=== PATIENT | male | born 1945 | race Caucasian/White ===

== ENCOUNTER 2022-05-06 19:52 | Inpatient (IN) | payer MEDICARE ==
[2022-05-06 21:15] LABS: #Lymphocytes 0.2 thou/uL (1.20-3.40); #Monocytes 0.4 thou/uL (0.11-0.59); %Basophils 0.2 % (0.0-1.0); %Eosinophils 0.1 % (0.0-10.0); %Lymphocytes 2.6 % (21.0-51.0); %Monocytes 6.3 % (0.0-10.0); %Neutrophils 90.8 % (42.0-75.0); Hemoglobin 12.3 g/dL (14.0-18.0); Mean Corpuscular HGB CONC 32.9 g/dL (32.0-36.0); Mean Corpuscular Hemoglobin 31.5 pg (27.0-31.0); Mean Corpuscular Volume 95.6 fl (78.0-98.0); Mean Platelet Volume 10.5 fL (7.4-10.4); RBC Distribution Width 12.8 % (11.5-14.5); White Blood Cell (WBC) Count 5.6 10x3/uL (4.8-10.8)
[2022-05-06 21:16] LABS: Platelet Morphology Comment PLT clumps seen-ADEQ
[2022-05-06 21:29] LABS: ALT (SGPT) 38 U/L (8-55); AST (SGOT) 158 U/L (5-34); Albumin 3.7 g/dL (3.4-4.8); Alkaline Phosphatase 48 U/L (40-110); Anion Gap 12 mmol/L (10-20); BUN (Urea Nitrogen) 15 mg/dL (8.4-25.7); Bilirubin, Total 0.4 mg/dL (0.2-1.2); CK (CPK) 2360 U/L (30-200); Calc. Creatinine Clearance 0 mL/min (70-130); Calcium 8.5 mg/dL (7.8-10.44); Carbon Dioxide 25 mmol/L (23-31); Chloride 101 mmol/L (98-107); Estimated GFR 90; Globulin 2.4 g/dL (2.4-3.5); Glucose 114 mg/dL (83-110); Lipase 34 U/L (8-78); Potassium 4.7 mmol/L (3.5-5.1); Protein, Total 6.1 g/dL (5.8-8.1); Sodium 133 mmol/L (136-145)
[2022-05-06 21:59] LABS: CKMB 120.2 ng/mL (0-6.6)
[2022-05-06] MEDS ORDERED: Enoxaparin Sodium 60 MG/0.6 ML SYRINGE ONE (22:06)
[2022-05-06] MEDS ORDERED: Aspirin Chewable 81 MG TAB ONE (22:06)
[2022-05-07] MEDS ORDERED: Nitroglycerin 0.4 MG TAB (25 Tab Bottle) SL PRN (00:19)
[2022-05-07] MEDS ORDERED: HYDROcodone/Acetaminophen 5/325 mg Tablet PO PRN (00:19)
[2022-05-07] MEDS ORDERED: Ondansetron ODT 4 MG TAB PO PRN (00:19)
[2022-05-07] MEDS ORDERED: Acetaminophen 325 MG TAB PO PRN (00:19)
[2022-05-07] MEDS ORDERED: Ondansetron PF 4 MG/2 ML Vial IVP PRN (00:19)
[2022-05-07] MEDS ORDERED: Cepastat Lozenges 1 LOZ PO PRN (00:29)
[2022-05-07] MEDS ORDERED: Benzonatate 100 MG CAP PO PRN (00:29)
[2022-05-07 01:02] LABS: Troponin I 30.277 ng/mL (< 0.028)
[2022-05-07 01:15] LABS: Hemoglobin A1c 5.1 % (4.0-6.0)
[2022-05-07] MEDS: Sodium Chloride 0.9% 1,000 ML IV SCH ×3 (01:47→22:39)
[2022-05-07 02:02] LABS: SARS-CoV-2 NAA Rapid Test Not Detected (NotDetected)
[2022-05-07 02:19] LABS: Magnesium 1.9 mg/dL (1.6-2.6)
[2022-05-07 04:18] LABS: ALT (SGPT) 78 U/L (8-55); AST (SGOT) 209 U/L (5-34); Albumin 3.2 g/dL (3.4-4.8); Alkaline Phosphatase 46 U/L (40-110); Anion Gap 10 mmol/L (10-20); BUN (Urea Nitrogen) 14 mg/dL (8.4-25.7); Bilirubin, Total 0.3 mg/dL (0.2-1.2); Calc. Creatinine Clearance 0 mL/min (70-130); Calcium 7.8 mg/dL (7.8-10.44); Carbon Dioxide 21 mmol/L (23-31); Chloride 106 mmol/L (98-107); Estimated GFR 94; Globulin 2.3 g/dL (2.4-3.5); Glucose 94 mg/dL (83-110); Potassium 4.3 mmol/L (3.5-5.1); Protein, Total 5.5 g/dL (5.8-8.1); Sodium 133 mmol/L (136-145)
[2022-05-07 04:25] LABS: Critical Call Chem Troponin I RESULT DECREASING; Troponin I 22.214 ng/mL (< 0.028)
[2022-05-07 06:05] LABS: #Lymphocytes 0.4 thou/uL (1.20-3.40); #Monocytes 0.5 thou/uL (0.11-0.59); #Neutrophils 3.4 thou/uL (1.40-6.50); %Basophils 0.4 % (0.0-1.0); %Eosinophils 0.3 % (0.0-10.0); %Lymphocytes 8.5 % (21.0-51.0); %Monocytes 10.9 % (0.0-10.0); %Neutrophils 79.9 % (42.0-75.0); Hemoglobin 11.4 g/dL (14.0-18.0); Mean Corpuscular HGB CONC 32.8 g/dL (32.0-36.0); Mean Corpuscular Hemoglobin 31.7 pg (27.0-31.0); Mean Corpuscular Volume 96.4 fl (78.0-98.0); Mean Platelet Volume 8.2 fL (7.4-10.4); Platelet Count 83 10x3/uL (130-400); RBC Distribution Width 12.9 % (11.5-14.5); Red Blood Cell (RBC) Count 3.61 mill/uL (4.70-6.10); White Blood Cell (WBC) Count 4.3 10x3/uL (4.8-10.8)
[2022-05-07] MEDS: Aspirin 81 mg Enteric Coated Tablet PO SCH (07:15)
[2022-05-07] MEDS: Enoxaparin Sodium 60 MG/0.6 ML SYRINGE SC SCH ×2 (08:53→22:39)
[2022-05-07] MEDS: Oseltamivir 75 MG CAP PO SCH ×2 (09:51→22:38)
[2022-05-07 11:24] LABS: Critical Call Chem Troponin I RESULT DECREASING; Troponin I 12.696 ng/mL (< 0.028)
[2022-05-07] MEDS ORDERED: Albuterol Sulfate 2.5 mg/3 ml Neb NEB SCH (13:00)
[2022-05-07] MEDS ORDERED: Albuterol Sulfate 2.5 mg/3 ml Neb ONE (14:35)
[2022-05-07] MEDS: Albuterol Sulfate 2.5 mg/3 ml Neb NEB SCH ×2 (14:44→19:17)
[2022-05-07] MEDS: Mometasone 200 MCG/Formoterol 5 MCG 120 PUFF INHALER INH SCH (19:17)
[2022-05-07] MEDS: Atorvastatin Calcium 40 MG TAB PO SCH (22:38)
[2022-05-08 05:33] LABS: Anion Gap 9 mmol/L (10-20); BUN (Urea Nitrogen) 12 mg/dL (8.4-25.7); Calc. Creatinine Clearance 74 mL/min (70-130); Calcium 7.7 mg/dL (7.8-10.44); Carbon Dioxide 23 mmol/L (23-31); Cardiac Risk 3.1 (Less than 4.5); Chloride 104 mmol/L (98-107); Cholesterol 114 mg/dl (< 200 Desired); Estimated GFR 96; Glucose 97 mg/dL (83-110); HDL Cholesterol 37 mg/dL (>60 Neg Risk); LDL Cholesterol, Calculated 62 mg/dL; Sodium 132 mmol/L (136-145); Triglycerides 75 mg/dL (Less than 150)
[2022-05-08 05:39] LABS: CKMB 32.2 ng/mL (0-6.6)
[2022-05-08] MEDS: Sodium Chloride 0.9% 1,000 ML IV SCH ×2 (06:16→17:51)
[2022-05-08] MEDS: Albuterol Sulfate 2.5 mg/3 ml Neb NEB SCH ×4 (07:43→18:33)
[2022-05-08] MEDS: Mometasone 200 MCG/Formoterol 5 MCG 120 PUFF INHALER INH SCH ×2 (07:43→18:32)
[2022-05-08 08:03] LABS: #Lymphocytes 0.7 thou/uL (1.20-3.40); #Monocytes 0.5 thou/uL (0.11-0.59); #Neutrophils 5.3 thou/uL (1.40-6.50); %Basophils 0.2 % (0.0-1.0); %Eosinophils 0.1 % (0.0-10.0); %Lymphocytes 10.5 % (21.0-51.0); %Monocytes 8.3 % (0.0-10.0); Hemoglobin 11.9 g/dL (14.0-18.0); Mean Corpuscular HGB CONC 33.8 g/dL (32.0-36.0); Mean Corpuscular Hemoglobin 32.6 pg (27.0-31.0); Mean Corpuscular Volume 96.3 fl (78.0-98.0); Mean Platelet Volume 9.7 fL (7.4-10.4); Platelet Count 99 10x3/uL (130-400); RBC Distribution Width 12.8 % (11.5-14.5); Red Blood Cell (RBC) Count 3.66 mill/uL (4.70-6.10); White Blood Cell (WBC) Count 6.5 10x3/uL (4.8-10.8)
[2022-05-08 08:04] LABS: Platelet Clumps SLIGHT
[2022-05-08] MEDS: Aspirin 81 mg Enteric Coated Tablet PO SCH (09:04)
[2022-05-08] MEDS: Enoxaparin Sodium 60 MG/0.6 ML SYRINGE SC SCH ×2 (09:04→21:52)
[2022-05-08] MEDS: Oseltamivir 75 MG CAP PO SCH ×2 (09:04→21:52)
[2022-05-08] MEDS: THIORIDAZINE 50 MG PO SCH (21:00)
[2022-05-08] MEDS: Atenolol 25 MG TAB PO SCH (21:52)
[2022-05-09] MEDS: Sodium Chloride 0.9% 1,000 ML IV SCH (05:08)
[2022-05-09 05:09] LABS: Anion Gap 14 mmol/L (10-20); BUN (Urea Nitrogen) 12 mg/dL (8.4-25.7); CK (CPK) 2237 U/L (30-200); Calc. Creatinine Clearance 69 mL/min (70-130); Calcium 7.9 mg/dL (7.8-10.44); Carbon Dioxide 20 mmol/L (23-31); Chloride 99 mmol/L (98-107); Estimated GFR 94; Glucose 143 mg/dL (83-110); Potassium 4.5 mmol/L (3.5-5.1); Sodium 128 mmol/L (136-145)
[2022-05-09 05:19] LABS: Troponin I 10.814 ng/mL (< 0.028)
[2022-05-09] MEDS: Albuterol Sulfate 2.5 mg/3 ml Neb NEB SCH ×4 (07:53→20:13)
[2022-05-09] MEDS: Mometasone 200 MCG/Formoterol 5 MCG 120 PUFF INHALER INH SCH ×2 (07:53→20:13)
[2022-05-09] MEDS ORDERED: Atenolol 50 MG TAB PO SCH (09:00)
[2022-05-09] MEDS: Oseltamivir 75 MG CAP PO SCH ×2 (09:50→21:49)
[2022-05-09] MEDS: Aspirin 81 mg Enteric Coated Tablet PO SCH (09:50)
[2022-05-09] MEDS: Enoxaparin Sodium 60 MG/0.6 ML SYRINGE SC SCH ×2 (09:50→21:49)
[2022-05-09] MEDS: Atenolol 25 MG TAB PO SCH ×2 (09:50→21:48)
[2022-05-09] MEDS ORDERED: Furosemide 20 MG/2 ML VIAL SLOW IVP SCH (17:00)
[2022-05-09] MEDS: THIORIDAZINE 50 MG PO SCH (21:00)
[2022-05-10 04:38] LABS: Anion Gap 15 mmol/L (10-20); BUN (Urea Nitrogen) 20 mg/dL (8.4-25.7); CK (CPK) 790 U/L (30-200); Calc. Creatinine Clearance 68 mL/min (70-130); Calcium 8.1 mg/dL (7.8-10.44); Carbon Dioxide 21 mmol/L (23-31); Chloride 97 mmol/L (98-107); Estimated GFR 92; Glucose 128 mg/dL (83-110); Potassium 4.4 mmol/L (3.5-5.1); Sodium 129 mmol/L (136-145)
[2022-05-10] MEDS: Albuterol Sulfate 2.5 mg/3 ml Neb NEB SCH ×3 (06:46→19:29)
[2022-05-10] MEDS: Mometasone 200 MCG/Formoterol 5 MCG 120 PUFF INHALER INH SCH ×2 (06:48→19:31)
[2022-05-10] MEDS: Atenolol 25 MG TAB PO SCH ×2 (10:11→20:35)
[2022-05-10] MEDS: Aspirin 81 mg Enteric Coated Tablet PO SCH (10:11)
[2022-05-10] MEDS: Oseltamivir 75 MG CAP PO SCH ×2 (10:11→20:35)
[2022-05-10] MEDS: Enoxaparin Sodium 60 MG/0.6 ML SYRINGE SC SCH ×2 (10:13→20:37)
[2022-05-10] MEDS: Atorvastatin Calcium 40 MG TAB PO SCH (20:35)
[2022-05-10] MEDS: THIORIDAZINE 50 MG PO SCH (20:37)
[2022-05-11 04:55] LABS: Anion Gap 13 mmol/L (10-20); BUN (Urea Nitrogen) 24 mg/dL (8.4-25.7); CK (CPK) 228 U/L (30-200); Calc. Creatinine Clearance 74 mL/min (70-130); Carbon Dioxide 21 mmol/L (23-31); Chloride 96 mmol/L (98-107); Estimated GFR 95; Glucose 118 mg/dL (83-110); Potassium 4.7 mmol/L (3.5-5.1); Sodium 125 mmol/L (136-145)
[2022-05-11 07:15] LABS: Hemoglobin 12.2 g/dL (14.0-18.0); Mean Corpuscular Hemoglobin 31.2 pg (27.0-31.0); Mean Corpuscular Volume 94.4 fl (78.0-98.0); Mean Platelet Volume 9.7 fL (7.4-10.4); Platelet Count 127 10x3/uL (130-400); RBC Distribution Width 12.7 % (11.5-14.5); White Blood Cell (WBC) Count 10.1 10x3/uL (4.8-10.8)
[2022-05-11 07:28] LABS: Band 1 % (5-11); Lymphocytes 7 % (21-51); MDiff Complete? YES; Monocytes 13 % (0-10); Neutrophil 79 % (42-75); Platelet Clumps MODERATE; Platelet Morphology Comment Appears Decreased; Polychromasia SLIGHT = 2-3 cells (100X) (0-2/hpf)
[2022-05-11] MEDS: Mometasone 200 MCG/Formoterol 5 MCG 120 PUFF INHALER INH SCH ×2 (08:08→18:41)
[2022-05-11] MEDS: Albuterol Sulfate 2.5 mg/3 ml Neb NEB SCH ×3 (08:08→18:40)
[2022-05-11] MEDS: THIORIDAZINE 50 MG PO SCH ×3 (10:18→21:43)
[2022-05-11] MEDS: Oseltamivir 75 MG CAP PO SCH ×2 (10:19→21:43)
[2022-05-11] MEDS: Aspirin 81 mg Enteric Coated Tablet PO SCH (10:19)
[2022-05-11] MEDS: Atenolol 25 MG TAB PO SCH ×2 (10:19→21:43)
[2022-05-11] MEDS: Enoxaparin Sodium 60 MG/0.6 ML SYRINGE SC SCH ×2 (10:19→21:40)
[2022-05-11] MEDS ORDERED: Diclofenac 1% 100 GM GEL TP SCH (10:45)
[2022-05-11] MEDS: Diclofenac 1% 100 GM GEL TP SCH ×2 (15:33→21:40)
[2022-05-11] MEDS: Atorvastatin Calcium 40 MG TAB PO SCH (21:41)
[2022-05-12 05:29] LABS: Anion Gap 12 mmol/L (10-20); BUN (Urea Nitrogen) 21 mg/dL (8.4-25.7); CK (CPK) 95 U/L (30-200); Calc. Creatinine Clearance 77 mL/min (70-130); Calcium 8.1 mg/dL (7.8-10.44); Carbon Dioxide 24 mmol/L (23-31); Chloride 99 mmol/L (98-107); Estimated GFR 96; Glucose 108 mg/dL (83-110); Potassium 5.4 mmol/L (3.5-5.1); Sodium 130 mmol/L (136-145)
[2022-05-12 05:52] LABS: Band 1 % (5-11); Hemoglobin 12.4 g/dL (14.0-18.0); Lymphocytes 15 % (21-51); MDiff Complete? YES; Mean Corpuscular HGB CONC 33.7 g/dL (32.0-36.0); Mean Corpuscular Hemoglobin 32.1 pg (27.0-31.0); Mean Corpuscular Volume 95.3 fl (78.0-98.0); Mean Platelet Volume 10.7 fL (7.4-10.4); Monocytes 8 % (0-10); Neutrophil 75 % (42-75); Platelet Morphology Comment PLT clumps seen-ADEQ; RBC Distribution Width 12.7 % (11.5-14.5); Reactive Lymphocytes 1 % (0-10); Red Blood Cell (RBC) Count 3.85 mill/uL (4.70-6.10); White Blood Cell (WBC) Count 9.7 10x3/uL (4.8-10.8)
[2022-05-12] MEDS: Atenolol 25 MG TAB PO SCH ×2 (09:26→20:48)
[2022-05-12] MEDS: Enoxaparin Sodium 60 MG/0.6 ML SYRINGE SC SCH ×3 (09:26→20:47)
[2022-05-12] MEDS: Aspirin 81 mg Enteric Coated Tablet PO SCH (09:27)
[2022-05-12] MEDS: THIORIDAZINE 50 MG PO SCH ×3 (09:27→20:53)
[2022-05-12] MEDS: Diclofenac 1% 100 GM GEL TP SCH ×3 (09:29→20:52)
[2022-05-12] MEDS: Albuterol Sulfate 2.5 mg/3 ml Neb NEB SCH ×3 (11:11→19:24)
[2022-05-12] MEDS: Mometasone 200 MCG/Formoterol 5 MCG 120 PUFF INHALER INH SCH ×2 (11:11→19:25)
[2022-05-12] MEDS ORDERED: Dextrose 50% Abboject 50 ML SYRINGE SLOW IVP SCH (17:30)
[2022-05-12] MEDS ORDERED: Insulin Regular 300 UNITS/3 ML VIAL IVP SCH (18:30)
[2022-05-12] MEDS ORDERED: Albuterol Sulfate 1.25 MG/3 ML NEB NEB SCH (19:00)
[2022-05-12] MEDS: Atorvastatin Calcium 40 MG TAB PO SCH (20:48)
[2022-05-12] MEDS ORDERED: Albuterol Sulfate 2.5 mg/3 ml Neb ONE (23:36)
[2022-05-13 06:04] LABS: Anion Gap 11 mmol/L (10-20); BUN (Urea Nitrogen) 15 mg/dL (8.4-25.7); CK (CPK) 91 U/L (30-200); Calc. Creatinine Clearance 92 mL/min (70-130); Calcium 7.8 mg/dL (7.8-10.44); Carbon Dioxide 25 mmol/L (23-31); Chloride 93 mmol/L (98-107); Estimated GFR 101; Glucose 92 mg/dL (83-110); Potassium 4.4 mmol/L (3.5-5.1); Sodium 125 mmol/L (136-145)
[2022-05-13 06:14] LABS: #Lymphocytes 0.7 thou/uL (1.20-3.40); #Monocytes 1.1 thou/uL (0.11-0.59); #Neutrophils 7.8 thou/uL (1.40-6.50); %Eosinophils 0.3 % (0.0-10.0); %Monocytes 11.4 % (0.0-10.0); %Neutrophils 81.4 % (42.0-75.0); Hemoglobin 11.4 g/dL (14.0-18.0); MDiff Complete? YES; Mean Corpuscular HGB CONC 33.4 g/dL (32.0-36.0); Mean Corpuscular Hemoglobin 31.5 pg (27.0-31.0); Mean Corpuscular Volume 94.4 fl (78.0-98.0); Mean Platelet Volume 10.1 fL (7.4-10.4); RBC Distribution Width 12.6 % (11.5-14.5); White Blood Cell (WBC) Count 9.6 10x3/uL (4.8-10.8)
[2022-05-13 06:15] LABS: Platelet Clumps SLIGHT; Platelet Morphology Comment PLT clumps seen-ADEQ
[2022-05-13] MEDS: Mometasone 200 MCG/Formoterol 5 MCG 120 PUFF INHALER INH SCH ×2 (07:09→19:49)
[2022-05-13] MEDS: Albuterol Sulfate 2.5 mg/3 ml Neb NEB SCH ×3 (07:10→19:48)
[2022-05-13] MEDS: Aspirin 81 mg Enteric Coated Tablet PO SCH (11:31)
[2022-05-13] MEDS: Enoxaparin Sodium 60 MG/0.6 ML SYRINGE SC SCH ×2 (11:31→21:32)
[2022-05-13] MEDS: THIORIDAZINE 50 MG PO SCH ×2 (11:31→21:31)
[2022-05-13] MEDS: Atenolol 25 MG TAB PO SCH ×2 (11:31→21:31)
[2022-05-13] MEDS: Diclofenac 1% 100 GM GEL TP SCH ×3 (11:32→21:32)
[2022-05-13] MEDS: Atorvastatin Calcium 40 MG TAB PO SCH (21:32)
[2022-05-14 05:58] LABS: Anion Gap 11 mmol/L (10-20); BUN (Urea Nitrogen) 13 mg/dL (8.4-25.7); CK (CPK) 62 U/L (30-200); Calc. Creatinine Clearance 96 mL/min (70-130); Calcium 7.9 mg/dL (7.8-10.44); Carbon Dioxide 27 mmol/L (23-31); Chloride 93 mmol/L (98-107); Estimated GFR 101; Glucose 127 mg/dL (83-110); Magnesium 2.1 mg/dL (1.6-2.6); Potassium 4.5 mmol/L (3.5-5.1); Sodium 126 mmol/L (136-145)
[2022-05-14] MEDS: Albuterol Sulfate 2.5 mg/3 ml Neb NEB SCH ×3 (07:34→20:00)
[2022-05-14] MEDS: Mometasone 200 MCG/Formoterol 5 MCG 120 PUFF INHALER INH SCH ×2 (07:35→20:02)
[2022-05-14] MEDS: Atenolol 25 MG TAB PO SCH ×2 (10:10→21:07)
[2022-05-14] MEDS: Aspirin 81 mg Enteric Coated Tablet PO SCH (10:10)
[2022-05-14] MEDS: Diclofenac 1% 100 GM GEL TP SCH ×3 (10:11→21:10)
[2022-05-14] MEDS: THIORIDAZINE 50 MG PO SCH ×2 (10:12→21:09)
[2022-05-14] MEDS: Enoxaparin Sodium 60 MG/0.6 ML SYRINGE SC SCH ×2 (10:12→21:08)
[2022-05-14 12:03] VITALS: BMI 20.3
[2022-05-14] MEDS: Atorvastatin Calcium 40 MG TAB PO SCH (21:08)
[2022-05-15 05:31] LABS: Anion Gap 12 mmol/L (10-20); BUN (Urea Nitrogen) 15 mg/dL (8.4-25.7); Calc. Creatinine Clearance 85 mL/min (70-130); Calcium 8.3 mg/dL (7.8-10.44); Carbon Dioxide 30 mmol/L (23-31); Chloride 91 mmol/L (98-107); Estimated GFR 97; Glucose 122 mg/dL (83-110); Potassium 4.9 mmol/L (3.5-5.1); Sodium 128 mmol/L (136-145)
[2022-05-15] MEDS: Albuterol Sulfate 2.5 mg/3 ml Neb NEB SCH (07:04)
[2022-05-15] MEDS: Mometasone 200 MCG/Formoterol 5 MCG 120 PUFF INHALER INH SCH (07:04)
[2022-05-15 07:37] VITALS: TEMP 98.6
[2022-05-15 08:38] LABS: #Lymphocytes 0.2 thou/uL (1.20-3.40); #Monocytes 0.7 thou/uL (0.11-0.59); #Neutrophils 7.7 thou/uL (1.40-6.50); %Eosinophils 0.1 % (0.0-10.0); %Lymphocytes 2.3 % (21.0-51.0); %Monocytes 8.3 % (0.0-10.0); %Neutrophils 89.3 % (42.0-75.0); Mean Corpuscular HGB CONC 33.1 g/dL (32.0-36.0); Mean Corpuscular Hemoglobin 31.8 pg (27.0-31.0); Platelet Count 129 10x3/uL (130-400); RBC Distribution Width 12.7 % (11.5-14.5); Red Blood Cell (RBC) Count 3.77 mill/uL (4.70-6.10); White Blood Cell (WBC) Count 8.7 10x3/uL (4.8-10.8)
[2022-05-15 09:00] LABS: Anion Gap 13 mmol/L (10-20); BUN (Urea Nitrogen) 16 mg/dL (8.4-25.7); Calc. Creatinine Clearance 77 mL/min (70-130); Calcium 8.3 mg/dL (7.8-10.44); Carbon Dioxide 30 mmol/L (23-31); Chloride 92 mmol/L (98-107); Estimated GFR 95; Glucose 118 mg/dL (83-110); Magnesium 2.2 mg/dL (1.6-2.6); Potassium 5.2 mmol/L (3.5-5.1); Sodium 130 mmol/L (136-145)
[2022-05-15] MEDS ORDERED: Multivitamin W/ Minerals 1 TAB PO SCH (09:00)
[2022-05-15] MEDS ORDERED: Folic Acid 1 MG TAB PO SCH (09:00)
[2022-05-15] MEDS ORDERED: Thiamine 100 MG TAB PO SCH (09:00)
[2022-05-15] MEDS: Atenolol 25 MG TAB PO SCH (09:37)
[2022-05-15] MEDS: Enoxaparin Sodium 60 MG/0.6 ML SYRINGE SC SCH (09:37)
[2022-05-15] MEDS: Aspirin 81 mg Enteric Coated Tablet PO SCH (09:37)
[2022-05-15] MEDS: THIORIDAZINE 50 MG PO SCH (09:38)
[2022-05-15] MEDS ORDERED: Furosemide 20 MG/2 ML VIAL SLOW IVP SCH (10:30)
[2022-05-15] MEDS: Diclofenac 1% 100 GM GEL TP SCH (10:48)
[2022-05-15 12:24] VITALS: BP 128/78
== END 2022-05-15 12:15 | DRG 280 ==
LOC: ERS 19:52 → ERHOLD 23:45 → 2NO 05-07 18:55
PROVIDERS: ADMIT Internal Medicine; ATTEND Hospitalist
DX: I21.4 Non-ST elevation (NSTEMI) myocardial infarction (principal); E43 Unspecified severe protein-calorie malnutrition; M62.82 Rhabdomyolysis; J98.11 Atelectasis; I42.9 Cardiomyopathy, unspecified; I50.20 Unspecified systolic (congestive) heart failure; R64 Cachexia; E87.1 Hypo-osmolality and hyponatremia; Z20.822 Contact with and (suspected) exposure to COVID-19; F03.90 Unspecified dementia, unspecified severity, without behavioral disturbance, psychotic disturbance, mood disturbance, and anxiety; M19.90 Unspecified osteoarthritis, unspecified site; F17.210 Nicotine dependence, cigarettes, uncomplicated; F41.9 Anxiety disorder, unspecified; Z66 Do not resuscitate; I73.9 Peripheral vascular disease, unspecified; J10.1 Influenza due to other identified influenza virus with other respiratory manifestations; F10.90 Alcohol use, unspecified, uncomplicated; E87.5 Hyperkalemia; R13.10 Dysphagia, unspecified; I35.0 Nonrheumatic aortic (valve) stenosis; I11.0 Hypertensive heart disease with heart failure; E78.5 Hyperlipidemia, unspecified; Z79.899 Other long term (current) drug therapy; Z79.82 Long term (current) use of aspirin; Z79.02 Long term (current) use of antithrombotics/antiplatelets; Z82.49 Family history of ischemic heart disease and other diseases of the circulatory system; Z85.89 Personal history of malignant neoplasm of other organs and systems; Z92.21 Personal history of antineoplastic chemotherapy; Z92.3 Personal history of irradiation; Z71.6 Tobacco abuse counseling; Z71.41 Alcohol abuse counseling and surveillance of alcoholic; Z68.20 Body mass index [BMI] 20.0-20.9, adult
CPT/HCPCS: 36415; 36416; 70450; 71045; 80048; 80053; 80061; 82550; 82553; 83036; 83690; 83735; 84443; 84484; 85025; 87811; 93005; 93306; 94640; 94664; G0306; J1650; J1815; J1940; J7050; J7611; J7620